=== PATIENT | female | born 1960 | race African-American/Black ===

== ENCOUNTER 2023-01-02 09:56 | Outpatient (CLI) | payer OTHER | END 2023-01-02 09:57 | disposition critical access hospital (66) | LOC: EMS 09:56 | DX: R07.89 Other chest pain (principal); M79.602 Pain in left arm | CPT/HCPCS: A0425; A0427 ==

== ENCOUNTER 2023-01-02 10:09 | Emergency (ER) | payer OTHER ==
[2023-01-02 10:32] LABS: BASOPHILS # (AUTO) 0.1 10^3/uL (0.0-0.1); BASOPHILS % (AUTO) 1.5 %; EOSINOPHILS # (AUTO) 0.2 10^3/uL (0.0-0.7); HCT - HEMATOCRIT 42.7 % (37.0-47.0); HGB - HEMOGLOBIN 13.7 g/dL (12.0-16.0); LYMPHOCYTES # (AUTO) 1.3 10^3/uL (1.5-3.5); LYMPHOCYTES % (AUTO) 38.6 %; MEAN CORPUSCULAR HEMOGLOBIN 25.8 pg (27.0-31.0); MEAN CORPUSCULAR HGB CONC 32.1 g/dL (32.0-36.0); MEAN CORPUSCULAR VOLUME 80.6 fL (81.0-99.0); MEAN PLATELET VOLUME 11.7 fL (7.9-10.8); MONOCYTES # (AUTO) 0.3 10^3/uL (0.0-1.0); MONOCYTES % (AUTO) 9.4 %; NEUTROPHILS # (AUTO) 1.4 10^3/uL (1.5-6.6); NEUTROPHILS % (AUTO) 43.2 %; PLT - PLATELET COUNT 220 10^3/uL (130-450); RED CELL DISTRIBUTION WIDTH 13.8 % (12.0-15.0); WHITE BLOOD COUNT 3.3 x10^3/uL (4.8-10.8)
--- NOTE | 2023-01-02 10:39 | ED Physician Documentation ---
PD HPI CHEST PAIN - Stated complaint Stated Complaint: CHEST PX - Chief complaint Chief Complaint: Cardiac - History obtained from History obtained from: Patient - Additional information Additional information: 62-year-old woman comes in for evaluation of chest pain. She over the last few months has had episodic bilateral shoulder pressure. Today about half an hour before calling the ambulance, so presume it would have started around 9 AM, developed this shoulder pressure but also with chest pressure. It is pretty much gone now after nitroglycerin in route. She has no history of heart proble ms. No hypertension or hyperlipidemia. She does smoke but only about 5 cigarettes a week. No family history of coronary disease. No pedal edema, calf pain, or travel. PD PAST MEDICAL HISTORY - Past Medical History Past Medical History: Yes Cardiovascular: Other - Allergies Allergies/Adverse Reactions: Allergies Allergy/AdvReac Type Severity Reaction Status Date / Time codeine Allergy Anaphylaxis Verified 01/02/23 10:15 Latex, Natural Rubber Allergy Anaphylaxis Verified 01/02/23 10:15 Sulfa (Sulfonamide Allergy Anaphylaxis Verified 01/02/23 10:15 Antibiotics) - Social History Does the pt smoke?: No Smoking Status: Never smoker PD ED PE NORMAL - Vitals Vital signs reviewed: Yes - General General: Alert and oriented X 3, No acute distress - Cardiac Cardiac: RRR, No murmur - Respiratory Respiratory: No respiratory distress, Clear bilaterally - Abdomen Abdomen: Non tender - Extremities Extremities: No edema, No calf tenderness / cord - Neuro Neuro: Alert and oriented X 3, Normal speech Results - Vitals Vitals: Vital Signs - 24 hr 01/02/23 01/02/23 01/02/23 10:12 13:02 13:28 Temperature 36.9 C Heart Rate 100 67 72 Respiratory 16 16 17 Rate Blood Pressure 158/104 H 138/65 H 179/93 H O2 Saturation 100 100 100 01/02/23 01/02/23 15:00 16:52 Temperature Heart Rate 61 65 Respiratory 15 17 Rate Blood Pressure 148/100 H 160/106 H O2 Saturation 100 98 Oxygen O2 Source Room air - EKG (time done) 1012 EKG releavant findings:: EKG personally interpreted by author of this note. Relevant findings are: Rate: Rate (enter#) (72) Rhythm: NSR Emmett: Normal Intervals: Normal IA QRS: Normal Ischemia: Normal ST segments 1403 EKG releavant findings:: EKG personally interpreted by author of this note. Relevant findings are: Rate: Rate (enter#) (67) Rhythm: NSR, LAE Emmett: Normal Intervals: Normal IA Ischemia: Normal ST segments, Non specific changes - Labs Labs: Laboratory Tests 01/02/23 01/02/23 01/02/23 10: 10: 12:30 WBC 3.3 L RBC 5.30 Hgb 13.7 Hct 42.7 MCV 80.6 L MCH 25.8 L MCHC 32.1 RDW 13.8 Plt Count 220 MPV 11.7 H Neut # (Auto) 1.4 L Lymph # (Auto) 1.3 L Gosper # (Auto) 0.3 Eos # (Auto) 0.2 Baso # (Auto) 0.1 Absolute Nucleated RBC 0.00 Nucleated RBC % 0.0 Sodium 141 Potassium 4.3 Chloride 107 Carbon Dioxide 29 Anion Gap 5.0 L BUN 13 Creatinine 0.8 Estimated GFR (MDRD) 73 L Glucose 98 Calcium 9.6 Total Bilirubin 0.3 AST 16 ALT 12 Alkaline Phosphatase 53 Troponin I High Sens 10.8 285.9 H* Total Protein 7.2 Albumin 4.1 Globulin 3.1 Albumin/Globulin Ratio 1.3 Lipase 38 SARS-CoV-2 (PCR) 01/02/23 13:57 WBC RBC Hgb Hct MCV MCH MCHC RDW Plt Count MPV Neut # (Auto) Lymph # (Auto) Gosper # (Auto) Eos # (Auto) Baso # (Auto) Absolute Nucleated RBC Nucleated RBC % Sodium Potassium Chloride Carbon Dioxide Anion Gap BUN Creatinine Estimated GFR (MDRD) Glucose Calcium Total Bilirubin AST ALT Alkaline Phosphatase Troponin I High Sens Total Protein Albumin Globulin Albumin/Globulin Ratio Lipase SARS-CoV-2 (PCR) NOT DETECTED - Rads (name of study) Single view chest x-ray is unremarkable Relevant Findings:: Final report received, EMP independent interpretation of test PD Medical Decision Making - ED course ED course: 62-year-old woman presents with substernal chest pressure resolving on arrival. Initial troponin negative but subsequent troponin after 2 hours with significant uptake and developed some recurrent chest pressure while in the emergency department. Nonischemic EKG. Will need transfer to a cardiac capable facility. Lovenox, statin, aspirin, metoprolol ordered. We worked with [facility] and a bed for her was arranged at [facility]. Departure - Departure Disposition: 02 Transfer Acute Care Hosp Clinical Impression: NSTEMI (non-ST elevated myocardial infarction) Condition: Serious Forms: PCP List Discharge Date/Time: 01/02/23 17:23
--- NOTE | 2023-01-02 10:43 | XRAY Report ---
PROCEDURE: Chest 1 View X-Ray INDICATIONS: Chest pain TECHNIQUE: One view of the chest was acquired. COMPARISON: None. FINDINGS: Surgical changes and devices: None. Lungs and pleura: No pleural effusions or pneumothorax. Lungs are clear. Mediastinum: The aorta is prominent and tortuous. The cardiac contours are within normal limits. Bones and chest wall: No suspicious bony lesions. Age-appropriate degenerative changes are seen. O verlying soft tissues appear unremarkable. IMPRESSION: Portable chest within normal limits for age. Reviewed by: Maicol Dunne MD on 01/02/2023 9:42 AM IRIS Approved by: Maicol Dunne MD on 01/02/2023 9:42 AM IRIS Station ID: [id number]
[2023-01-02 10:44] LABS: ALBUMIN 4.1 g/dL (3.2-5.5); ALBUMIN/GLOBULIN RATIO 1.3 (1.0-2.2); BILIRUBIN,TOTAL 0.3 mg/dL (0.2-1.0); CALCIUM 9.6 mg/dL (8.5-10.3); CREATININE 0.8 mg/dL (0.6-1.3); POTASSIUM 4.3 mmol/L (3.5-4.5); TOTAL PROTEIN 7.2 g/dL (6.4-8.9)
[2023-01-02 10:49] LABS: TROPONIN I HIGH SENSITIVITY 10.8 ng/L (2.3-14.8)
[2023-01-02] MEDS ORDERED: METOPROLOL TARTRATE 50 MG TABLET PO STA (13:03)
[2023-01-02] MEDS ORDERED: ASPIRIN CHEW 81 MG TABLET PO STA (13:03)
[2023-01-02] MEDS ORDERED: ENOXAPARIN 80 MG/0.8 ML SYRINGE SUBQ STA (13:03)
[2023-01-02] MEDS ORDERED: ATORVASTATIN 40 MG TABLET PO STA (13:03)
[2023-01-02 16:59] VITALS: BP 160/106; O2SAT 98
[2023-01-02] MEDS ORDERED: METOPROLOL TARTRATE 25 MG TABLET PO SCH (21:00)
[2023-01-02] MEDS ORDERED: ENOXAPARIN 80 MG/0.8 ML SYRINGE SUBQ SCH (21:00)
[2023-01-02] MEDS ORDERED: ATORVASTATIN 40 MG TABLET PO SCH (21:00)
[2023-01-03] MEDS ORDERED: ASPIRIN CHEW 81 MG TABLET PO SCH (09:00)
== END 2023-01-02 17:23 | disposition short-term general hospital (02) ==
LOC: ED 10:09
DX: I21.4 Non-ST elevation (NSTEMI) myocardial infarction (principal); Z20.822 Contact with and (suspected) exposure to COVID-19
CPT/HCPCS: 36415; 71045; 80053; 83690; 84484; 85025; 87635; 93005; 96372; 99284; 99285; A9270; J1650

== ENCOUNTER 2023-04-15 15:04 | Outpatient (CLI) | payer OTHER ==
--- NOTE | 2023-04-15 15:55 | XRAY Report ---
PROCEDURE: Lumbar Spine 2-3V INDICATIONS: LUMBAGO TECHNIQUE: 3 views of the lumbar spine were acquired. COMPARISON: None. FINDINGS: Bones: 5 [id number] vertebrae are present. There is normal bony alignment. No vertebral body compression fractures. No suspicious bony lesions. Soft tissues: Overlying bowel gas pattern is normal. No suspicious soft tissue calcifications. IMPRESSION: Reviewed by: Panfilo West MD on 04/15/2023 3:54 PM PST Approved by: Panfilo West MD on 04/15/2023 3:54 PM PST Station ID: [id number]
== END 2023-04-15 23:59 | disposition home or self-care (01) ==
LOC: DI.N 15:04
PROVIDERS: ATTEND Physician Assistant
DX: M54.50 Low back pain, unspecified (principal)

== ENCOUNTER 2023-06-10 08:55 | Outpatient (CLI) | payer OTHER ==
--- NOTE | 2023-06-10 10:23 | XRAY Report ---
PROCEDURE: Elbow 3+V LT INDICATIONS: LEFT ELBOW PAIN TECHNIQUE: 3 views of the elbow were acquired. COMPARISON: None. FINDINGS: Bones: No fractures or dislocations. No suspicious bony lesions. Soft tissues: No effusion. No suspicious soft tissue calcifications or masses. IMPRESSION: No acute elbow fracture or significant joint effusion. Reviewed by: Josh Duffy MD on 06/10/2023 10:22 AM PDT Approved by: Josh Duffy MD on 06/10/2023 10:22 AM PDT Station ID: [id number]
== END 2023-06-10 08:56 | disposition home or self-care (01) ==
LOC: DI 08:55
PROVIDERS: ATTEND Nurse Practitioner Family
DX: M25.522 Pain in left elbow (principal)